=== PATIENT | female | born 1970 | race Two or more races ===

== ENCOUNTER 2019-01-25 06:00 | Emergency (ER) | payer BC ==
[~2019-01-25] VITALS: Ht 165.1 cm; Wt 79.9 kg
[2019-01-25 06:09] VITALS: BP 146/112; Ht 165.1 cm; Wt 79.9 kg
== END 2019-01-25 07:06 | disposition home or self-care (01) ==
LOC: ED 06:00
DX: N39.0 Urinary tract infection, site not specified (principal)